=== PATIENT | female | born 1980 | race Caucasian/White ===

== ENCOUNTER → 2017-04-16 | Outpatient (CLI) | payer OTHER ==
--- NOTE | 2017-04-16 15:11 | XR ---
EXAMINATION TYPE: XR chest 2V DATE OF EXAM: 04/16/2017 CLINICAL HISTORY: J18.8 Other pneumonia, unspecified organism TECHNIQUE: Frontal and lateral views of the chest are obtained. COMPARISON: None FINDINGS: There is no focal air space opacity, pleural effusion, or pneumothorax seen. The cardiac silhouette size is within normal limits. The osseous structures are intact. IMPRESSION: No acute cardiopulmonary process.
== END ==
LOC: RADXRMAIN 14:35
PROVIDERS: ATTEND Internal Medicine
DX: J18.8 Other pneumonia, unspecified organism (principal)
CPT/HCPCS: 71020

== ENCOUNTER → 2019-04-01 | Outpatient (CLI) | payer OTHER ==
--- NOTE | 2019-04-02 08:25 | XR ---
EXAMINATION TYPE: XR chest 2V DATE OF EXAM: 04/01/2019 COMPARISON: 04/16/2017 HISTORY: Annual physical TECHNIQUE: Frontal and lateral views of the chest are obtained. FINDINGS: There is no focal air space opacity, pleural effusion, or pneumothorax seen. The cardiac silhouette size is within normal limits. The osseous structures are intact. IMPRESSION: No acute cardiopulmonary process.
--- NOTE | 2019-04-02 08:30 | XR ---
EXAMINATION TYPE: XR wrist complete RT, XR hand complete RT DATE OF EXAM: 04/01/2019 CLINICAL HISTORY: Right wrist pain in right hand pain TECHNIQUE: Frontal, lateral and oblique images of the right wrist and hand were obtained. COMPARISON: None FINDINGS: Lucency through the mid scaphoid body is seen on a single view only and does not persist th roughout the examination, most notably does not persist on the scaphoid view. Carpal carpal interspac es are maintained. No focal soft tissue swelling is appreciated of the rest nor hand. Osseous mineral ization is within normal limits. No suspicious osseous lesion is seen. No additional acute fracture i s suspected. No radiopaque foreign body. IMPRESSION: There is a subtle lucency of the mid scaphoid body on the oblique view only of the wrist. This is not reproduced on the scaphoid view however given scaphoid fractures are prone to nonunion a nd necrosis precautionary CT would be advised of the wrist to ensure no underlying fracture.
== END | disposition home or self-care (01) ==
LOC: RADXRMAIN 17:48
PROVIDERS: ATTEND Internal Medicine
DX: M79.644 Pain in right finger(s) (principal); M79.641 Pain in right hand; Z72.0 Tobacco use
CPT/HCPCS: 71046

== ENCOUNTER → 2019-04-12 | Outpatient (CLI) | payer OTHER ==
--- NOTE | 2019-04-12 17:41 | MR ---
EXAMINATION TYPE: MR wrist RT wo con DATE OF EXAM: 04/12/2019 COMPARISON: None HISTORY: Pain in wrist / Scaphoid fracture Standard multiplanar, multisequence MRI departmental protocol Multiplanar, multisequence images of the right wrist were acquired. FINDINGS: The carpal bones are intact. There is no evidence of scaphoid fracture. There are small scl erotic foci in the scaphoid and lunate consistent with bone islands. Triangular cartilage appears normal. There are small wrist joint effusion. The intercarpal joint spac es are fairly normal. The flexor and extensor tendons of the wrist appear intact. IMPRESSION: There is mild wrist joint effusion consistent with synovitis. No fracture seen. There is no evidence of a scaphoid fracture.
== END | disposition home or self-care (01) ==
LOC: RADMRIMAIN 07:48
PROVIDERS: ATTEND Internal Medicine
DX: M25.531 Pain in right wrist (principal)

== ENCOUNTER → 2019-05-23 | Outpatient (CLI) | payer OTHER ==
--- NOTE | 2019-05-23 08:38 | MM ---
Reason for exam: screening (asymptomatic). Baseline mammogram. History: Patient is nulliparous. Family history of breast cancer in maternal aunt at age 80. Took hormonal contraceptives for 12 years beginning at age 21. Physical Findings: Nurse did not find any significant physical abnormalities on exam. MG Screening Mammo w CAD Bilateral CC and MLO view(s) were taken. The breast tissue is heterogeneously dense. This may lower the sensitivity of mammography. No suspicious abnormality. These results were verbally communicated with the patient and result sheet given to the patient on 05/23/19. ASSESSMENT: Negative, BI-RAD 1 RECOMMENDATION: Routine screening mammogram of both breasts in 1 year.
== END | disposition home or self-care (01) ==
LOC: RADMAMWWP 07:14
PROVIDERS: ATTEND Internal Medicine
DX: Z12.31 Encounter for screening mammogram for malignant neoplasm of breast (principal)
CPT/HCPCS: 77067

== ENCOUNTER 2020-01-26 16:37 | Emergency (ER) | payer OTHER ==
[2020-01-26 16:45] VITALS: BP 145/84; RESP 22
[2020-01-26] MEDS ORDERED: ACETAMINOPHEN TAB 500 MG TAB PO STA (17:02)
--- NOTE | 2020-01-26 17:26 | XR ---
EXAMINATION TYPE: XR chest 1V portable DATE OF EXAM: 01/26/2020 COMPARISON: 04/01/2019 HISTORY: Chest pain TECHNIQUE: Single frontal view of the chest is obtained. FINDINGS: Increased density right lower lobe may reflect developing infiltrate. Correlate clinically and consid er progress study. The cardiac silhouette size is within normal limits. The osseous structures are intact. IMPRESSION: 1. Increased density right lower lobe may reflect developing infiltrate. Correlate clinically and co nsider progress study.
[2020-01-26] MEDS ORDERED: cefTRIAXone 1,000 MG VIAL (IM USE) IM STA (17:46)
[2020-01-26 17:47] VITALS: PULSE 83
--- NOTE | 2020-01-26 17:51 | ED ---
General Adult HPI - General Chief complaint: Fever Stated complaint: SOB, elevated heart rate Time Seen by Provider: 01/26/20 16:50 Source: patient, RN notes reviewed Mode of arrival: ambulatory Limitations: no limitations - History of Present Illness Initial comments: 39-year-old female with a past medical history of pneumonia, seizure disorder presents to the emergency department for a chief complaint of fever. Patient states she has had cough and body ache chills headache for the past 3 days. States that she took Tylenol earlier this morning but has not taken anything since. States she was due about an hour and a half ago. Patient is feeling somewhat short of breath as well. She denies any chest pain. Patient denies any santos virus exposures. Denies history of asthma or COPD. Patient has no other complaints at this time including shortness of breath, chest pain, abdominal pain, nausea or vomiting, headache, or visual changes. - Related Data Previous Rx's Medication Instructions Recorded Albuterol Inhaler (Bulk) [Ventolin 1 - 2 puff INHALATION Q6HR PRN #1 01/26/20 Hfa Inhaler (Bulk)] inhaler Azithromycin [Zithromax Z-pack] 250 mg PO DIRECTED #6 tab 01/26/20 Allergies Allergy/AdvReac Type Severity Reaction Status Date / Time acetaminophen [From Vicodin] Allergy Nausea & Verified 01/26/20 16:45 Vomiting hydrocodone [From Vicodin] Allergy Nausea & Verified 01/26/20 16:45 Vomiting prochlorperazine Allergy increased Verified 01/26/20 16:45 [From Compazine] anxiety Review of Systems ROS Statement: Those systems with pertinent positive or pertinent negative responses have been documented in the HPI. ROS Other: All systems not noted in ROS Statement are negative. Past Medical History Past Medical History: Pneumonia, Seizure Disorder History of Any Multi-Drug Resistant Organisms: None Reported Past Surgical History: Orthopedic Surgery Additional Past Surgical History / Comment(s): gerardo wrist Past Psychological History: Depression Smoking Status: Never smoker Past Alcohol Use History: Rare General Exam Limitations: no limitations General appearance: alert, in no apparent distress Head exam: Present: atraumatic, normocephalic, normal inspection Eye exam: Present: normal appearance, PERRL, EOMI. Absent: scleral icterus, conjunctival injection, periorbital swelling ENT exam: Present: normal exam, mucous membranes moist Neck exam: Present: normal inspection, full ROM. Absent: tenderness, meningismus, lymphadenopathy Respiratory exam: Present: normal lung sounds bilaterally. Absent: respiratory distress, wheezes, rales, rhonchi, stridor Cardiovascular Exam: Present: regular rate, normal rhythm, normal heart sounds. Absent: systolic murmur, diastolic murmur, rubs, gallop, clicks GI/Abdominal exam: Present: soft, normal bowel sounds. Absent: distended, tenderness, guarding, rebound, rigid Neurological exam: Present: alert Course Vital Signs 01/26/20 16:42 Temperature 99.7 F H Pulse Rate 116 H Respiratory 22 Rate Blood Pressure 145/84 O2 Sat by Pulse 96 Oximetry Medical Decision Making - Medical Decision Making Patient initially presents tachycardic however likely reflexive tachycardia. Vitals did improve. Heart rate decreased to 83 after Tylenol. Patient remained 98% on room air. She is not in any respiratory distress. Chest x-ray shows increased density right lower lobe that may reflect a developing infiltrate. Correlate clinically and consider progress study. I discussed this with patient. Patient will be treated with antibiotics. I did recommend a repeat chest x-ray in a few weeks to make sure that this resolves. I discussed with patient that at this time as she is stable we are not recommended test her for coronavirus however that she should treat herself as if she has it. She should have a low threshold for return. She should also quarantine she is agreeable to this and is able to do so. Patient requesting inhaler as this helped the last time she had a pneumonia. Disposition Clinical Impression: Fever, Pneumonia Disposition: HOME SELF-CARE Condition: Good Instructions (If sedation given, give patient instructions): Fever in Adults (ED) Additional Instructions: Please take antibiotics as directed. Use inhaler as needed. Follow-up with primary care in 1-2 days. Make sure to have repeat chest x-ray to ensure resolution. Return to the emergency department for any worsening symptoms. Prescriptions: Albuterol Inhaler (Bulk) [Ventolin Hfa Inhaler (Bulk)] 1 - 2 puff INHALATION Q6HR PRN #1 inhaler PRN Reason: Shortness Of Breath Azithromycin [Zithromax Z-pack] 250 mg PO DIRECTED #6 tab Is patient prescribed a controlled substance at d/c from ED?: No Referrals: Blessing Long MD [REFERRING] - 1-2 days Time of Disposition: 17:50
[2020-01-26 18:32] VITALS: TEMP 99.1
== END 2020-01-26 18:32 | disposition home or self-care (01) ==
LOC: EC 16:37
DX: J18.9 Pneumonia, unspecified organism (principal); Z88.5 Allergy status to narcotic agent; Z88.6 Allergy status to analgesic agent; Z88.8 Allergy status to other drugs, medicaments and biological substances
CPT/HCPCS: 71045; 99283; 96372; J0696

== ENCOUNTER 2022-03-10 20:39 | Emergency (ER) | payer BC, OTHER ==
[2022-03-10 21:25] VITALS: TEMP 98.8
--- NOTE | 2022-03-11 01:10 | ED ---
ENT HPI - General Chief complaint: ENT Stated complaint: Sore throat,Fever Time Seen by Provider: 03/11/22 01:09 Source: patient, RN notes reviewed, old records reviewed Mode of arrival: ambulatory Limitations: no limitations - History of Present Illness Initial comments: this is a 41-year-old female DF for evaluation patient coming in for multiple complaints sore throat ear pain difficulty swallowing diminished appetite episodic fevers times a week. No travel history no sick contacts no other complaints she has been tested for Kovic covert test was negative. Patient still having significant throat pain despite taking his antiviral, she has been seen by 2 different doctors this week MD complaint: sore throat, ear pain -: week(s) Location: R ear, L ear, throat Severity: moderate Severity scale (1-10): 6 Quality: aching, sharp Consistency: constant Improves with: none Worsens with: swallowing Associated Symptoms: fever, sore throat - Related Data Previous Rx's Medication Instructions Recorded Albuterol Inhaler (Mhu) [Ventolin 1 - 2 puff INHALATION Q6HR PRN #1 01/26/20 Hfa Inhaler (Mhu)] inhaler Azithromycin [Zithromax Z-pack (6 250 mg PO DIRECTED #6 tab 01/26/20 tabs)] Allergies Allergy/AdvReac Type Severity Reaction Status Date / Time hydrocodone [From Vicodin] Allergy Nausea & Verified 03/10/22 21:26 Vomiting prochlorperazine Allergy increased Verified 03/10/22 21:26 [From Compazine] anxiety Review of Systems ROS Statement: Those systems with pertinent positive or pertinent negative responses have been documented in the HPI. ROS Other: All systems not noted in ROS Statement are negative. Past Medical History Past Medical History: Pneumonia, Seizure Disorder History of Any Multi-Drug Resistant Organisms: None Reported Past Surgical History: Orthopedic Surgery Additional Past Surgical History / Comment(s): gerardo wrist Past Psychological History: Depression Smoking Status: Never smoker Past Alcohol Use History: Rare Past Drug Use History: None Reported General Exam Limitations: no limitations General appearance: alert, in no apparent distress Head exam: Present: atraumatic, normocephalic, normal inspection Eye exam: Present: normal appearance, PERRL, EOMI. Absent: scleral icterus, conjunctival injection, periorbital swelling ENT exam: Present: mucous membranes moist. Absent: normal oropharynx (patient does have pharyngeal erythema), TM's normal bilaterally (bilateral TMs are cloudy) Neck exam: Present: normal inspection. Absent: tenderness, meningismus, lymphadenopathy Respiratory exam: Present: normal lung sounds bilaterally. Absent: respiratory distress, wheezes, rales, rhonchi, stridor Cardiovascular Exam: Present: regular rate, normal rhythm, normal heart sounds. Absent: systolic murmur, diastolic murmur, rubs, gallop, clicks GI/Abdominal exam: Present: soft, normal bowel sounds. Absent: distended, tenderness, guarding, rebound, rigid Extremities exam: Present: normal inspection, full ROM, normal capillary refill. Absent: tenderness, pedal edema, joint swelling, calf tenderness Back exam: Present: normal inspection Neurological exam: Present: alert, oriented X3, CN II-XII intact Psychiatric exam: Present: normal affect, normal mood Skin exam: Present: warm, dry, intact, normal color. Absent: rash Course Vital Signs 03/10/22 03/11/22 21:22 01:15 Temperature 98.8 F Pulse Rate 102 H 98 Respiratory 20 16 Rate Blood Pressure 148/89 141/70 O2 Sat by Pulse 98 98 Oximetry - Reevaluation(s) Reevaluation #1: 03/11/22 02:15 medical record is reviewed Reevaluation #2: 03/11/22 02:15 patient informed of results and questions answered Reevaluation #3: 03/11/22 02:15 spoke with patient regarding findings here in the ER, patient is feeling better Medical Decision Making - Medical Decision Making 41 female to the ER for evaluation of sore throat with ear pain. Sinus infection and pharyngitis. Patient fully placed on antibiotics and can be discharged home - Lab Data Lab Results 03/11/22 Range/Units 01:10 Coronavirus (PCR) Not Detected (Not Detectd) - Radiology Data Radiology results: report reviewed (XR soft tissue neck negative for acute disease), image reviewed Disposition Clinical Impression: Otitis externa, Otitis media, Sore throat, Acute pharyngitis, Acute sinusitis Disposition: HOME SELF-CARE Condition: Good Instructions (If sedation given, give patient instructions): Earache (ED), Pharyngitis (ED), Sinusitis (ED) Is patient prescribed a controlled substance at d/c from ED?: No Referrals: None,Stated [Primary Care Provider] - 1-2 days
[2022-03-11 01:19] VITALS: PULSE 98
[2022-03-11] MEDS ORDERED: IBUPROFEN 800 MG TAB PO STA (01:26)
[2022-03-11] MEDS ORDERED: DEXAMETHASONE SOD PHOSPHATE 10 MG/ML 1 ML VIAL IM STA (01:26)
[2022-03-11] MEDS ORDERED: ACETAMINOPHEN TAB 500 MG TAB PO STA (01:26)
[2022-03-11] MEDS ORDERED: AMOXIC-POT CLAV 875-125MG 1 EACH TAB PO STA (01:27)
--- NOTE | 2022-03-11 02:44 | XR ---
EXAMINATION TYPE: XR soft tissue neck DATE OF EXAM: 03/11/2022 COMPARISON: NONE HISTORY: Swelling and pain TECHNIQUE: 2 view FINDINGS: Subglottic trachea appears normal. Epiglottis is not thickened. There is mild straightening of the cervical spine. Prevertebral soft tissues are not enlarged. Tonsils and adenoids appear intac t. IMPRESSION: Negative cervical soft tissue exam.
[2022-03-11 03:07] VITALS: BP 141/77; RESP 18
== END 2022-03-11 03:10 | disposition home or self-care (01) ==
LOC: EC 20:39
DX: J01.90 Acute sinusitis, unspecified (principal); H60.90 Unspecified otitis externa, unspecified ear; J02.9 Acute pharyngitis, unspecified; Z20.822 Contact with and (suspected) exposure to COVID-19; Z88.5 Allergy status to narcotic agent; Z88.8 Allergy status to other drugs, medicaments and biological substances; Z88.9 Allergy status to unspecified drugs, medicaments and biological substances
CPT/HCPCS: 87635; 70360; 99284; 96372; J1100

== ENCOUNTER 2025-02-22 12:37 | Emergency (ER) | payer BC, MEDICARE ==
[2025-02-22 12:44] VITALS: TEMP 98
[2025-02-22] MEDS: SODIUM CHLORIDE 0.9% 1,000 ML IV ONE (14:06)
[2025-02-22] MEDS: ONDANSETRON 4 MG/2 ML VIAL IVP STA (14:07)
[2025-02-22 14:08] LABS: Basophils # (A) 0.07 10*3/uL (0.00-0.10); Basophils % (A) 1.2 %; Eosinophils # (A) 0.04 10*3/uL (0.04-0.35); Eosinophils % (A) 0.7 %; HCT 44.9 % (37.2-46.3); HGB 14.6 g/dL (12.0-15.0); Lymphocytes # (A) 1.18 10*3/uL (0.90-5.00); Lymphocytes % (A) 20.8 %; MCH 26.8 pg (27.0-32.0); MCHC 32.5 g/dL (32.0-37.0); MCV 82.4 fL (80.0-97.0); Mean Platelet Volume 9.2 fL (9.5-12.2); Monocytes # (A) 0.45 10*3/uL (0.20-1.00); Monocytes % (A) 7.9 %; Neutrophils # (A) 3.93 10*3/uL (1.80-7.70); Neutrophils % (A) 69.2 %; Platelet Count 296 10*3/uL (140-440); RBC 5.45 10*6/uL (4.10-5.20); RDW 16.2 % (11.5-14.5); WBC 5.68 10*3/uL (4.50-10.00)
[2025-02-22] MEDS: MORPHINE SULFATE 4 MG/ML SYRINGE IVP STA ×2 (14:11→16:29)
[2025-02-22] MEDS: PANTOPRAZOLE 40 MG/10 ML VIAL IVP STA (14:15)
[2025-02-22 14:16] LABS: Appearance,Urine Clear (Clear); Color,Urine Light Yellow; Glucose,Urine (UA) Negative (Negative); PH, Urine 6.5 (5.0-8.0); Protein,Urine Negative (Negative); Specific Gravity,Urine 1.021 (1.001-1.035)
[2025-02-22 14:17] LABS: Bilirubin,Urine Negative (Negative); Blood,Urine Small (Negative); Ketones,Urine 2+ (Negative); Leukocyte Esterase,Urine Negative (Negative); Mucus,Urine Rare /hpf; Nitrite,Urine Negative (Negative); RBC,Urine 5 /hpf (0-5); Squamous Epithelial Cell,Urine 2 /hpf (0-4); Urobilinogen,Urine <2.0 mg/dL (<2.0); WBC,Urine 3 /hpf (0-5)
[2025-02-22 14:18] LABS: Partial Thromboplastin Time 23.8 sec (22.0-30.0); Prothrombin Time 11.3 sec (10.0-12.5)
[2025-02-22 14:24] LABS: ALT 20 U/L (4-34); AST 20 U/L (14-36); African American GFR (CKD) >90 (>60 ml/min/1.73 sqM); Albumin 4.4 g/dL (3.5-5.0); Alkaline Phosphatase 65 U/L (38-126); Amylase 51 U/L (30-110); Anion Gap 13 mmol/L; Blood Urea Nitrogen 10 mg/dL (7-17); Calcium 9.9 mg/dL (8.4-10.2); Carbon Dioxide 26 mmol/L (22-30); Chloride 99 mmol/L (98-107); Glucose 101 mg/dL (74-99); Lipase 73 U/L (23-300); Non-African American GFR(CKD) >90 (>60 ml/min/1.73 sqM); Potassium 3.9 mmol/L (3.5-5.1); Sodium 138 mmol/L (137-145); Total Bilirubin 0.5 mg/dL (0.2-1.3); Total Protein 7.5 g/dL (6.3-8.2)
--- NOTE | 2025-02-22 15:45 | US ---
EXAMINATION TYPE: US transvaginal DATE OF EXAM: 02/22/2025 COMPARISON: NONE CLINICAL INDICATION: Female, 44 years old with history of intractable abd pain. recent D C.; D&C Apri l . Pelvic pain TECHNIQUE: Transvaginal (TV). Transvaginal grayscale sonographic images of the pelvis were acquired. Doppler imaging: Color Doppler Images were obtained. Spectral doppler images were obtained. FINDINGS: Date of LMP: unknown EXAM MEASUREMENTS: Uterus: 7.8 x 3.4 x 4.8 cm Endometrial Stripe: 0.4 cm Right Ovary: 2.9 x 1.8 x 2.0 cm Left Ovary: 2.9 x 2.5 x 1.5 cm 1. Uterus: Anteverted heterogeneous. Nabothian cysts, largest = 1.2cm . possible fibroid posterior body = 2.1 x 1.8 x 2.0cm 2. Endometrium: small amount of fluid within 3. Right Ovary: follicle noted 4. Left Ovary: limited evaluation due to overlying bowel gas, appears wnl Spectral, color and waveform doppler imaging shows good arterial and venous flow within the ovaries ; there is no evidence for ovarian torsion. 5. Bilateral Adnexa: appears wnl 6. Posterior cul-de-sac: appears wnl IMPRESSION: 1. No evidence for acute process. 2. Fibroid uterus. 3. Appropriate arterial and venous spectral waveforms to the ovaries. 4. Endometrium within normal limits for thickness. [facility], , 02/22/2025 3:43 PM
--- NOTE | 2025-02-22 16:05 | CT ---
EXAMINATION TYPE: CT abdomen pelvis w con DATE OF EXAM: 02/22/2025 3:44 PM COMPARISON: Ultrasound same day CLINICAL INDICATION: Female, 44 years old with history of abdominal pain. recent D C.; Pelvic pain, D &C completed on February 10 TECHNIQUE: Axial CT abdomen pelvis w con;Sagittal and coronal reformats were created on a separate w orkstation. Contrast used:100 ml mL of Isovue 300 with IV Contrast, (none if empty) Oral contrast used: without Oral Contrast (none if empty) CT DLP: 959.5 mGycm, Automated exposure control for dose reduction was used. FINDINGS: LOWER CHEST: Calcified granuloma right medial lower lobe. Partially calcified lymph node near the dis [place] esophagus. ABDOMEN LIVER: Scattered calcified granulomas. GALLBLADDER AND BILE DUCTS: Unremarkable. PANCREAS: Unremarkable. SPLEEN: Scattered calcified granulomas. ADRENAL GLANDS: Unremarkable. KIDNEYS AND URETERS: No evidence of hydronephrosis or obstructing renal calculus. The ureters are unr emarkable. PELVIS BLADDER: No evidence for wall thickening or mass given limitations of exam. REPRODUCTIVE: Nabothian cysts present. The endometrium is poorly visualized. ABDOMEN & PELVIS STOMACH AND BOWEL: No evidence of bowel obstruction. PERITONEUM/RETROPERITONEUM: No evidence of pneumoperitoneum. trace fluid in the pelvis.. No evidence of aortic aneurysm. MUSCULOSKELETAL: No acute osseous abnormalities, degeneration changes at L5-S1 disc space with vacuum disc phenomenon and disc space and osteophytes. LYMPH NODES: No gross evidence for lymphadenopathy. SOFT TISSUE/ABDOMINAL WALL: Tiny fat-containing umbilical hernia. IMPRESSION: 1. No evidence for acute abdominal process. There is trace fluid in the pelvis which is presumably p hysiologic. Nabothian cyst present in the cervix. The endometrium is poorly visualized. 2. No evidence for obstructive uropathy or renal calculus. The appendix is normal. 3. Sequela of chronic granulomatous disease with calcified granulomas in the spleen liver and lungs. [facility], , 02/22/2025 4:03 PM
--- NOTE | 2025-02-22 17:31 | ED ---
General Adult HPI - General Chief complaint: Abdominal Pain Stated complaint: pelvic pain Time Seen by Provider: 02/22/25 13:08 Source: patient, RN notes reviewed, old records reviewed Mode of arrival: ambulatory Limitations: no limitations - History of Present Illness Initial comments: Patient is a 44-year-old female presents emergency department complaining of abdominal pain. Patient had a D&C procedure on February 10 at [facility] by Dr. Perez. States that she has been having pain since. Was admitted for a few days at that same facility with no clear diagnosis. Is continuing to have pain. Denies any vaginal discharge or bleeding. Denies any pain with urination. Denies diarrhea or constipation. Originally was constipated but that has resolved. Has bloating has resolved. But she is still having diffuse lower abdominal pain. Is seeking a second opinion. Would like to be kept here or follow-up with a [facility] in this area. She has been using Robaxin and Tylenol at home. Does have a history of dysfunctional uterine bleeding which is why she had the D&C of the first place. Has no other acute complaints at this time. Presents for further evaluation. - Related Data Previous Rx's Medication Instructions Recorded Albuterol Inhaler [Ventolin Hfa 1 - 2 puff INHALATION Q6HR PRN #1 01/26/20 Inhaler] inhaler Azithromycin [Zithromax Z-pack (6 250 mg PO DIRECTED #6 tab 01/26/20 tabs)] Amoxic-Pot Clav 875-125Mg 1 tab PO Q12HR #20 tablet 03/11/22 [Augmentin 875-125] Allergies Allergy/AdvReac Type Severity Reaction Status Date / Time hydrocodone [From Vicodin] Allergy Nausea & Verified 02/22/25 12:44 Vomiting prochlorperazine Allergy increased Verified 02/22/25 12:44 [From Compazine] anxiety Review of Systems ROS Statement: Those systems with pertinent positive or pertinent negative responses have been documented in the HPI. Review of Systems: CONST: Denies fever EYES: Denies blurry vision ENT: Denies nasal congestion C/V: Denies Chest pain RESP: Denies shortness of breath GI: Endorses abdominal pain : Denies dysuria SKIN: Denies rash. MSK: Denies joint pain. NEURO: Denies headache ROS Other: All systems not noted in ROS Statement are negative. Past Medical History Past Medical History: Pneumonia, Seizure Disorder History of Any Multi-Drug Resistant Organisms: None Reported Past Surgical History: Orthopedic Surgery Additional Past Surgical History / Comment(s): gerardo wrist Past Psychological History: Depression Smoking Status: Never smoker Past Alcohol Use History: Rare Past Drug Use History: None Reported General Exam - General Exam Comments Initial Comments: General: Appears in mild distress secondary to abdominal pain HEAD: Normal with no signs of head trauma. EYES: EOMI ENT: Hearing grossly intact, normal oropharynx. RESPIRATORY: Clear breath sounds bilaterally. No wheezes, rales, or rhonchi. C/V: Regular rate and rhythm. S1 and S2 auscultated, no edema, peripheral pulses 2+ and intact throughout ABD: Abdomen soft, nondistended. Mild tenderness to palpation throughout the lower abdomen. No guarding or rebound tenderness. No peritoneal signs. EXT: Normal range of motion, no obvious deformity SKIN: No rashes or lesions observed on exposed skin. NEURO: Alert and oriented x 4. Limitations: no limitations Course Vital Signs 02/22/25 02/22/25 02/22/25 12:40 14:13 18:20 Temperature 98 F Pulse Rate 99 74 60 Respiratory 20 18 15 Rate Blood Pressure 141/82 140/82 117/64 O2 Sat by Pulse 99 100 100 Oximetry Medical Decision Making - Medical Decision Making Was pt. sent in by a medical professional or institution ([facility], [facility], urgent care, hospital, or jail...) When possible be specific @ -No Did you speak to anyone other than the patient for history (EMS, parent, family, police, friend...)? What history was obtained from this source @ -No Did you review nursing and triage notes (agree or disagree)? Why? @ -I reviewed and agree with nursing and triage notes Were old charts reviewed (outside hosp., previous admission, EMS record, old EKG, old radiological studies, urgent care reports/EKG's, jail records)? Report findings @ -Reviewed ultrasound paperwork from outside hospital which showed no obvious acute finding other than some residual free fluid that seems physiologic. Patient does have a fibroid. Differential Diagnosis (chest pain, altered mental status, abdominal pain women, abdominal pain men, vaginal bleeding, weakness, fever, dyspnea, syncope, headach e, dizziness, GI bleed, back pain, seizure, CVA, palpatations, mental health, musculoskeletal)? @ -Differential Abdominal Pain Women: Appendicitis, Cholecystitis, diverticulosis, ischemic bowel, pancreatitis, hepatitis, UTI, gastroenteritis, AAA, incarcerated hernia, bowel obstruction, constipation, inflammatory bowel, hepatitis, peptic ulcer disease, splenic infarction, perforated viscus, vulvitis, ovarian torsion, PID, kidney stone, placenta abruption, this is not meant to be an all-inclusive list EKG interpreted by me (3pts min.). @ -As above X-rays interpreted by me (1pt min.). @ -None done CT interpreted by me (1pt min.). @ -CT abdomen pelvis shows no obvious acute intra-abdominal process. Patient does have sequela of chronic granulomatous disease. Patient also has a nabothian cyst. U/S interpreted by me (1pt. min.). @ -Ultrasound reveals no evidence of acute process. Fibroid present. What testing was considered but not performed or refused? (CT, X-rays, U/S, labs)? Why? @ -None What meds were considered but not given or refused? Why? @ -None Did you discuss the management of the patient with other professionals (professionals i.e. , PA, [facility], lab, RT, psych nurse, social insurance specialist, automatic spinning lathe operator, teacher, escrow officer, correctional counselor/case manager)? Give summary @ -Discussed with Dr. Waller who recommended outpatient follow-up. She is willing to see the patient in her office this week. Was smoking cessation discussed for >3mins.? @ -No Was critical care preformed (if so, how long)? @ -No Were there social determinants of health that impacted care today? How? (Homelessness, low income, unemployed, alcoholism, drug addiction, transportation, low edu. Level, literacy, decrease access to med. care, m[facility], rehab)? @ -No Was there de-escalation of care discussed even if they declined (Discuss DNR or withdrawal of care, Hospice)? DNR status @ -No What co-morbidities impacted this encounter? (DM, HTN, Smoking, COPD, CAD, Cancer, CVA, ARF, Chemo, Hep., AIDS, mental health diagnosis, sleep apnea, morbid obesity)? @ -None Was patient admitted / discharged? Hospital course, mention meds given and route, prescriptions, significant lab abnormalities, going to OR and other per tinent info. @ -Patient presents for postop pain. Had a D&C a few weeks ago and is having continued pain. Had outpatient workup at another facility however still having pain at this time. Would like to have a second opinion by a different [employer]. Vital signs within acceptable limits. Patient administered IV fluids analgesia meds. Will repeat abdominal labs, ultrasound, CT as well as a pelvic. She was in agreement this plan. Female midlevel provider completed the pelvic exam which was unremarkable. Laboratory studies are all within acceptable limits. Imaging showed no obvious acute findings to Pablo explanation for the patient's pain. This includes ultrasound and CT. On reevaluation, we discussed workup. I did speak with Dr. Waller the on-call [facility] who believes it is safe for the patient be discharged home at this time. She was in agreement this plan. She will follow-up with Dr. Waller this week. Diagnosis is abdominal pain of unknown etiology. She expresses understanding was in agreement this plan. I instructed the patient to follow up with their PCP in the next 1-3 days. I explained that the patient should return to the emergency department if they experience any worsening symptoms. Strict return precautions were discussed with the patient. The patient expressed understanding of these instructions. I answered all questions that the patient had. The patient was discharged home in good condition with their prescriptions and follow up information. Undiagnosed new problem with uncertain prognosis? @ -No Drug Therapy requiring intensive monitoring for toxicity (Heparin, Nitro, Insulin, Cardizem)? @ -No Were any procedures done? @ -No Diagnosis/symptom? @ -Abdominal pain of unknown etiology, intractable abdominal pain Acute, or Chronic, or Acute on Chronic? @ -Acute on chronic Uncomplicated (without systemic symptoms) or Complicated (systemic symptoms)? @ -Uncomplicated Side effects of treatment? @ -No Exacerbation, Progression, or Severe Exacerbation? @ -No Poses a threat to life or bodily function? How? (Chest pain, [place], [place], pneumonia, PE, COPD, DKA, ARF, appy, cholecystitis, CVA, Diverticulitis, Homicidal, Suicidal, threat to staff... and all critical care pts) @ -Unlikely at this time - Lab Data Result diagrams: 02/22/25 14:03 02/22/25 14:03 Lab Results 0502/22/25 02/22/25 Range/Units 13:53 14:03 14:03 WBC 5.68 (4.50-10.00) 10*3/uL RBC 5.45 H (4.10-5.20) 10*6/uL Hgb 14.6 (12.0-15.0) g/dL Hct 44.9 (37.2-46.3) % MCV 82.4 (80.0-97.0) fL MCH 26.8 L (27.0-32.0) pg MCHC 32.5 (32.0-37.0) g/dL Plt Count 296 (140-440) 10*3/uL MPV 9.2 L (9.5-12.2) fL Immature Gran % (Auto) 0.2 % Neutrophils % 69.2 % Lymphocytes % 20.8 % Monocytes % 7.9 % Eosinophils % 0.7 % Basophils % 1.2 % Immature Gran # 0.01 (0.00-0.04) 10*3/uL Neutrophils # 3.93 (1.80-7.70) 10*3/uL Lymphocytes # 1.18 (0.90-5.00) 10*3/uL Monocytes # 0.45 (0.20-1.00) 10*3/uL Eosinophils # 0.04 (0.04-0.35) 10*3/uL Basophils # 0.07 (0.00-0.10) 10*3/uL PT 11.3 (10.0-12.5) sec INR 1.0 (<1.2) APTT 23.8 (22.0-30.0) sec Sodium (137-145) mmol/L Potassium (3.5-5.1) mmol/L Chloride (98-107) mmol/L Carbon Dioxide (22-30) mmol/L Anion Gap mmol/L BUN (7-17) mg/dL Creatinine (0.52-1.04) mg/dL Est GFR (CKD-EPI)AfAm (>60 ml/min/1.73 sqM) Est GFR (CKD-EPI)NonAf (>60 ml/min/1.73 sqM) Glucose (74-99) mg/dL Plasma Lactic Acid Randal (0.7-2.0) mmol/L Calcium (8.4-10.2) mg/dL Total Bilirubin (0.2-1.3) mg/dL AST (14-36) U/L ALT (4-34) U/L Alkaline Phosphatase (38-126) U/L Total Protein (6.3-8.2) g/dL Albumin (3.5-5.0) g/dL Amylase (30-110) U/L Lipase (23-300) U/L Urine Color Light Yellow Urine Appearance Clear (Clear) Urine pH 6.5 (5.0-8.0) Ur Specific [place] 1.021 (1.001-1.035) Urine Protein Negative (Negative) Urine Glucose (UA) Negative (Negative) Urine Ketones 2+ H (Negative) Urine Blood Small H (Negative) Urine Nitrite Negative (Negative) Urine Bilirubin Negative (Negative) Urine Urobilinogen <2.0 (<2.0) mg/dL Ur Leukocyte Esterase Negative (Negative) Urine RBC 5 (0-5) /hpf Urine WBC 3 (0-5) /hpf Ur Squamous Epith Cells 2 (0-4) /hpf Urine Mucus Rare H (None) /hpf 02/22/25 02/22/25 Range/Units 14:03 14:03 WBC (4.50-10.00) 10*3/uL RBC (4.10-5.20) 10*6/uL Hgb (12.0-15.0) g/dL Hct (37.2-46.3) % MCV (80.0-97.0) fL MCH (27.0-32.0) pg MCHC (32.0-37.0) g/dL Plt Count (140-440) 10*3/uL MPV (9.5-12.2) fL Immature Gran % (Auto) % Neutrophils % % Lymphocytes % % Monocytes % % Eosinophils % % Basophils % % Immature Gran # (0.00-0.04) 10*3/uL Neutrophils # (1.80-7.70) 10*3/uL Lymphocytes # (0.90-5.00) 10*3/uL Monocytes # (0.20-1.00) 10*3/uL Eosinophils # (0.04-0.35) 10*3/uL Basophils # (0.00-0.10) 10*3/uL PT (10.0-12.5) sec INR (<1.2) APTT (22.0-30.0) sec Sodium 138 (137-145) mmol/L Potassium 3.9 (3.5-5.1) mmol/L Chloride 99 (98-107) mmol/L Carbon Dioxide 26 (22-30) mmol/L Anion Gap 13 mmol/L BUN 10 (7-17) mg/dL Creatinine 0.56 (0.52-1.04) mg/dL Est GFR (CKD-EPI)AfAm >90 (>60 ml/min/1.73 sqM) Est GFR (CKD-EPI)NonAf >90 (>60 ml/min/1.73 sqM) Glucose 101 H (74-99) mg/dL Plasma Lactic Acid Randal 0.8 (0.7-2.0) mmol/L Calcium 9.9 (8.4-10.2) mg/dL Total Bilirubin 0.5 (0.2-1.3) mg/dL AST 20 (14-36) U/L ALT 20 (4-34) U/L Alkaline Phosphatase 65 (38-126) U/L Total Protein 7.5 (6.3-8.2) g/dL Albumin 4.4 (3.5-5.0) g/dL Amylase 51 (30-110) U/L Lipase 73 (23-300) U/L Urine Color Urine Appearance (Clear) Urine pH (5.0-8.0) Ur Specific [place] (1.001-1.035) Urine Protein (Negative) Urine Glucose (UA) (Negative) Urine Ketones (Negative) Urine Blood (Negative) Urine Nitrite (Negative) Urine Bilirubin (Negative) Urine Urobilinogen (<2.0) mg/dL Ur Leukocyte Esterase (Negative) Urine RBC (0-5) /hpf Urine WBC (0-5) /hpf Ur Squamous Epith Cells (0-4) /hpf Urine Mucus (None) /hpf Disposition Clinical Impression: Abdominal pain of unknown etiology, Intractable abdominal pain Disposition: HOME SELF-CARE Condition: Good Instructions (If sedation given, give patient instructions): Abdominal Pain (ED) Additional Instructions: Follow-up with Dr. Gates. Follow-up in the next 1 to 3 days. Diagnosis is abdominal pain of unknown etiology. Return if any worsening symptoms. Is patient prescribed a controlled substance at d/c from ED?: Yes When asked, does pt state using other controlled substances?: No If prescribed controlled substance>3 days was MAPS reviewed?: Prescribed <3 Days If opioid is for acute pain is fill amount 7 days or less?: Yes If Rx opioid, was Start Talking consent form obtained?: Yes Referrals: None,Stated [Primary Care Provider] - 1-2 days Karina Waller DO [Doctor of Osteopathic Medicine] - 1-2 days Time of Disposition: 17:30
[2025-02-22 18:21] VITALS: BP 117/64; PULSE 60; RESP 15
[2025-02-22] MEDS: ACET/COD 300 MG/30 MG STARTER PACK 6 TAB BTL PO STA (18:38)
== END 2025-02-22 18:56 | disposition home or self-care (01) ==
LOC: EC 12:37
DX: R10.30 Lower abdominal pain, unspecified (principal); Z88.5 Allergy status to narcotic agent; Z88.8 Allergy status to other drugs, medicaments and biological substances
CPT/HCPCS: 36415; 80053; 82150; 83605; 83690; 85025; 85610; 85730; 81001; 93975; 76830; 74177; 99284; 96374; 96375 ×2; 96376; 96361; J2270; J2405; Q9967; J2470